=== PATIENT | female | born 1935 | race Caucasian/White ===

== ENCOUNTER 2018-06-10 13:24 | Outpatient (CLI) | payer MEDICARE, BC ==
--- NOTE | 2018-06-10 17:25 | HP ---
DATE OF ADMISSION: 06/10/2018 HISTORY OF PRESENT ILLNESS: Ms. Yaima Pardo is a very pleasant 83-year-old who presents to the [facility] for evaluation of a pressure ulceration of the right buttock. The patient states that the ulceration developed during a hospital stay for aortic valve replacement. The patient states that sh soniya required redo aortic valve replacement during the same hospital stay and also suffered a CVA while in the hospital. She states that the pressure ulceration of the right buttock developed after her CV A. The patient states that the wound improved during her stay in rehabilitation. PAST MEDICAL HISTORY: 1. Gastroesophageal reflux disease. 2. Hypothyroidism. 3. Osteoarthritis. 4. Osteopenia. 5. Valvular heart disease. PAST SURGICAL HISTORY: 1. Breast biopsy x5 for benign breast disease. 2. VENICE/BSO. 3. Cholecystectomy. 4. Aortic valve replacement. 5. Redo aortic valve replacement. 6. Right foot surgery for 2 hammertoes. MEDICATIONS: 1. Aspirin. 2. Synthroid. 3. Pepcid p.r.n. ALLERGIES: LEVAQUIN. SOCIAL HISTORY: Negative for tobacco or ETOH use. FAMILY HISTORY: Significant for diabetes mellitus. The patient states that her grandmother was diag nosed with diabetes mellitus. PHYSICAL EXAMINATION: VITAL SIGNS: Temperature 97.4, pulse 82, respirations 21, blood pressure 164/76. GENERAL: An 83-year-old female, sitting on chair in examination room, in no acute distress. HEENT: Normocephalic, atraumatic. NECK: No nuchal rigidity. CHEST: Clear to auscultation. CARDIAC: Regular rate and rhythm. ABDOMEN: Soft. EXTREMITIES: No clubbing or cyanosis. BACK: No open wound of the right buttock is present. The ulceration of the right buttock has healed completely. ASSESSMENT AND PLAN: 1. 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 During the patient's hospital stay, Ms. Pardo also required redo aortic valve replacement. The patient has been reassured that the pressure ulceration of the right buttock has healed completely and that no open wound is present on exam today. Ms. Pardo will be discharge d from clinic today with followup on a p.r.n. basis. The patient understands and is in agreement wit h the preceding treatment plan. 2. Gastroesophageal reflux disease. 3. Hypothyroidism. 4. Osteoarthritis. 5. Osteopenia. 6. Valvular heart disease.
== END 2018-06-10 13:25 | disposition home or self-care (01) ==
LOC: WCC 13:24
PROVIDERS: ATTEND Family Medicine
DX: L89.319 Pressure ulcer of right buttock, unspecified stage (principal); K21.9 Gastro-esophageal reflux disease without esophagitis; E03.9 Hypothyroidism, unspecified; M19.90 Unspecified osteoarthritis, unspecified site; M85.80 Other specified disorders of bone density and structure, unspecified site; Z95.2 Presence of prosthetic heart valve; Z86.73 Personal history of transient ischemic attack (TIA), and cerebral infarction without residual deficits